=== PATIENT | female | born 1975 | race Hispanic/Latino ===

== ENCOUNTER 2022-02-01 07:48 | Emergency (ER) | payer OTHER, SELFPAY ==
[2022-02-01 07:52] VITALS: BP 140/73; PULSE 65; PULSE 68; RESP 16; TEMP 36.9; O2SAT 96; BMI 41.6
[2022-02-01 07:54] VITALS: BP 140/73; PULSE 66; O2SAT 96
--- NOTE | 2022-02-01 09:06 | ED_ITS ---
HPI - Skin/Abscess/Foreign Bdy General Chief complaint: Skin/Abscess/Foreign Body Stated complaint: right arm bite Time Seen by Provider: 02/01/22 08:56 Source: patient Mode of arrival: Ambulatory Limitations: no limitations History of Present Illness HPI narrative: Adelia lopez is a 46-year-old woman who comes to the ER today for swelling and redness in her right arm. She has a remote history of cancer but is taking no active treatments for it. She is traveling from out of the area. She says yesterday she had a bug bite on the medial aspect of her right upper arm. She has some local swelling and redness around the bug bite site. The swelling is most of the medial aspect of her upper right arm and around the back over her elbow area. There is no tracking of redness up toward the axilla. She denies f ever chills nausea vomiting diarrhea fever or other infectious symptoms. Related Data Home Medications Medication Instructions Recorded Confirmed multivitamin (Multiple Vitamins ##0 06/05/17 tablet) Previous Rx's Medication Instructions Recorded cephalexin 500 mg capsule 500 mg PO QID #28 caps 02/01/22 Allergies Allergy/AdvReac Type Severity Reaction Status Date / Time oxycodone [OXYCODONE] AdvReac Mild Nausea Unverified 10/25/17 12:46 Review of Systems Review of Systems Narrative: Complete review of systems is negative other than as noted in the HPI Patient History Surgical History (Updated 11/14/17 @ 06:13 by Conversion Provider) Status post cholecystectomy Status post hysterectomy Family History (Updated 07/25/17 @ 00:00 by Conversion Provider) Mother Age: 61 Hypertension Social History Smoking Status: Smoker, status unknown Smoking Status: Smoker, status unknown Exam Narrative Exam Narrative: GENERAL: Alert, cooperative and in no distress. HEAD: Atraumatic. Normocephalic. EYES: Sclera are clear without icterus. Extraocular movements are full. ENT: No rhinorrhea. Oropharynx is moist. Mouth exam is benign. NECK: Supple. Full range of motion. CARDIOVASCULAR: Normal rate and rhythm without murmur gallop or rub. RESPIRATORY: Clear to auscultation. Breath sounds equal bilaterally. No wheezes, rales, or rhonchi. GASTROINTESTINAL: Abdomen soft, non-tender, nondistended. EXTREMITIES: No edema, full range of motion. No obvious trauma. She has marked redness with a very clearly demarcated line around the right upper extremity medially. There is urticarial reaction as well. There is no lymphangitis. There is no right axillary swelling or tenderness. BACK: Normal inspection, no CVA tenderness. NEURO: Nonfocal examination, normal speech, normal gait. SKIN: No rash or erythema of visible areas PSYCH: Normally oriented. Normal range of affect. Appropriate behavior Initial Vital Signs Initial Vital Signs: Vital Signs Temperature 98.4 F 02/01/22 07:52 Pulse Rate 68 02/01/22 07:52 Respiratory Rate 16 02/01/22 07:52 Blood Pressure 140/73 02/01/22 07:52 Pulse Oximetry 96 02/01/22 07:52 Oxygen Delivery Method 02/01/22 07:52 Course Vital Signs Vital signs: Vital Signs - 8 hr 02/01/22 07:52 Temperature 98.4 F Pulse Rate 68 Respiratory Rate 16 Blood Pressure 140/73 Pulse Oximetry 96 Oxygen Delivery Method Room Air MDM - Skin/Abscess/Foreign Bdy MDM Narrative Medical decision making narrative: She looks entirely well. She has a local reaction from a insect bite. I do not suspect cellulitis. I think symptomatic therapy is okay. Discharge Plan Departure Patient Disposition: Home Clinical Impression: Insect bites, Urticaria Activity Restrictions/Additional Instructions: I do not suspect an infection here. I recommend cool compresses, antihistamines, Tylenol and ibuprofen. It is possible that you may develop an infection in the coming days. If you develop fever, chills generalized body aches or tracking of the redness up toward the armpit, I recommend you take cephalexin 4 times daily for 7 days. I do not think it is very likely that you will need this medicine. I do not suspect a more dangerous causes such as a dangerous insect poisoning. Follow-up with your doctor in a few days if things are not improving, follow up right away for dramatically worse symptoms. Prescriptions: New cephalexin 500 mg capsule 500 mg PO QID Qty: 28 0RF No Action multivitamin [Multiple Vitamins] 1 EACH tablet Qty: 0
[2022-02-01 09:38] VITALS: PULSE 55; O2SAT 95
== END 2022-02-01 09:43 | disposition home or self-care (01) ==
PROVIDERS: Emergency Provider Family Medicine Addiction Medicine; Family Provider Family Medicine
DX: S40.861A Insect bite (nonvenomous) of right upper arm, initial encounter (principal); L50.9 Urticaria, unspecified
CPT/HCPCS: 99281